=== PATIENT | male | born 1995 | race Hispanic/Latino ===

== ENCOUNTER 2017-05-18 19:10 | Emergency (ER) | payer OTHER ==
[2017-05-18] MEDS: LIDOCAINE 2% MDV 20 ML VIAL SC (22:12)
== END 2017-05-18 22:58 | disposition home or self-care (01) ==
LOC: M ED 19:10
DX: S91.202A Unspecified open wound of left great toe with damage to nail, initial encounter (principal); X58.XXXA Exposure to other specified factors, initial encounter; Y92.84 Military training ground as the place of occurrence of the external cause; Y93.9 Activity, unspecified; Y99.1 Military activity
CPT/HCPCS: 99282